=== PATIENT | female | born 1995 | race Two or more races ===

== ENCOUNTER 2020-07-24 03:01 | Emergency (ER) | payer BC, MEDICAID ==
[~2020-07-24] VITALS: Ht 157.5 cm; Wt 59.0 kg
[2020-07-24 03:15] VITALS: BP 127/71
--- NOTE | 2020-07-24 03:36 | NUR ---
CALLED PATIENT TO BE PLACED IN ROOM. NOT OUTSIDE OR IN WAITING ROOM.
== END 2020-07-24 03:38 | disposition left against medical advice (07) ==
LOC: ER 03:04
DX: Z53.21 Procedure and treatment not carried out due to patient leaving prior to being seen by health care provider (principal)

== ENCOUNTER 2021-01-23 00:09 | Emergency (ER) | payer BC, OTHER ==
[~2021-01-23] VITALS: Ht 154.9 cm; Wt 54.4 kg
--- NOTE | 2021-01-23 00:30 | NUR ---
ABSCESS ON THE RT FOREARM X 3DAYS TO ER BED 4
[2021-01-23] MEDS ORDERED: LIDOCAINE 1%-EPI 1:100,000 20 ML VIAL ONE (01:05)
[2021-01-23] MEDS ORDERED: BUPIVACAINE 0.5 % PF 150 MG/30 ML VIAL ONE (01:05)
[2021-01-23 02:37] VITALS: BP 114/65
--- NOTE | 2021-01-23 02:37 | NUR ---
Patient eloped from facility. ER MD notified.
== END 2021-01-23 02:39 | disposition left against medical advice (07) ==
LOC: ER 00:13
DX: L02.413 Cutaneous abscess of right upper limb (principal)
CPT/HCPCS: 10060; 99282; A6403; J3490 ×2